=== PATIENT | male | born 1955 | race Hispanic/Latino ===

== ENCOUNTER 2016-09-17 14:19 | Day surgery (SDC) | payer SELFPAY ==
[~2016-09-17] VITALS: Ht 177.8 cm; Wt 113.4 kg
--- NOTE | 2016-09-17 08:03 | PCM.HPANE ---
Patient Data Surgeon Admitting Provider: Attending Provider:Sarkis Ortega MD Primary Care Physician:Ciarra Razo MD Other Provider:[facility] Anest[facility] Reason for Visit Iron Deficiency Anemia Ht/WT & BMI Body Mass Index Allergies Coded Allergies: No Known Allergies (Verified , 09/24/13) Past Anesthesia History Anesthesia History: Denies:: Anesthesia Reactions, Fam Anesthesia Reaction, Fam Malignant Hypertherm, Malignant Hyperthermia Diabetes History Hx Diabetes?: Yes MRSA MRSA: No Medications Blood Thinner: Aspirin Reported Medications Losartan-Expunged Drug, Do Not Renew! 25 Mg Jrkxfo29 Mg PO DAILY #30 TAB Therapeutic Substitue for all ARB class drugs 09/21/13 Rosuvastatin-Expunged Drug, Do Not Renew! (Crestor-Expunged Drug, Do Not Renew!) 20 Mg Lqhtlk81 Mg PO DAILY #15 TAB Ref 0 For Cholesterol Management. 09/21/13 Tadalafil (Cialis)5 Mg Tablet5 Mg PO PRN Ref 0 no more than every 36 hours 09/21/13 Aspirin-Expunged Drug, Do Not Renew! (Aspirin EC-Expunged Drug, Do Not Renew!) 81 Mg Teyoqc48 Mg PO DAILY DO NOT CRUSH 09/21/13 Insulin Aspart-Expunged Drug, Do Not Renew! (Novolog-Expunged Drug, Do Not Renew !)100 U/Ml Cartridge Sq Ac Prn Pre-meal 150-199 1unit 200-249 3unit 250-299 5unit 300-345 7unit grater than 349 8unit Bed time 150-199 none 200-249 2unit 250-299 3unit 300-345 5unit grater than 349 7unit 11/12/11 Insulin Glargine-Expunged Drug, Do Not Renew! (Lantus-Expunged Drug, Do Not Renew!)100 Unit/1 Ml Vial30 Unit SQ HS 11/12/11 Carvedilol-Expunged Drug, Do Not Renew! 12.5 Mg Kipmhr28.5 Mg PO BID 09/16/11 Lisinopril-Expunged Drug, Do Not Renew! 5 Mg Tablet5 Mg PO AM 09/05/11 Insulin Aspart-Expunged Drug, Do Not Renew! (Novolog-Expunged Drug, Do Not Renew !)100 U/Ml Fewubiizu75 U Sq Tidac 09/05/11 Escitalopram-Expunged Drug, Do Not Renew! (Lexapro-Expunged Drug, Do Not Renew!) 10 Mg Ltfqhu42 Mg PO AM Ref 0 06/21/09 Omeprazole-Expunged Drug, Do Not Renew! 20 Mg Tablet.dr20 Mg PO DAILY Ref 0 06/21/09 Atorvastatin-Expunged Drug, Do Not Renew! 40 Mg Wxzwov58 Mg PO BID Ref 0 06/21/09 Discontinued Reported Medications Ranitidine Hcl (Zantac)300 Mg Iaz491 Mg PO HS PRN 09/21/13 Docusate Sod-Expunged Drug, Do Not Renew! 250 Mg Shbrluw918-346 Mg PO DAILY 09/21/13 Beclomethasone-Expunged Drug, Do Not Renew! (Wiaf-84-Ramfjtja Drug, Do Not Renew !)80 Mcg Puff1 Puff INH BID #8.7 GM Ref 0 SHAKE WELL*RINSE MOUTH AFTER USE* 09/21/13 Albuterol-Expunged Drug, Do Not Renew! (ProAir HFA-Expunged Drug, Do Not Renew!) 200 Puff/8.5 Gm Hfa.aer.ad2 Puff INH Q4H PRN #8.5 GM Ref 0 For Wheezing or Shortness of Breath 09/21/13 Duloxetine-Expunged Drug, Do Not Renew! (Cymbalta-Expunged Drug, Do Not Renew!) 60 Mg Capsule.dr60 Mg PO BID 09/21/13 Nortriptyline-Expunged Drug, Do Not Renew! 10 Mg Zjpxfzt84 Mg PO HS 09/21/13 oxyCODONE-Expunged, Do Not Renew! (OxyCONTIN-Expunged, Do Not Renew!)20 Mg Tab.sr.12h20 Mg PO BID 11/12/11 Acetaminophen With Codeine (Cocet Plus Tablet)1 Each Tablet1-2 Each PO Q6 PRN 09/16/11 Buspirone-Expunged Drug, Do Not Renew! 15 Mg Puwtvg03 Mg PO BID 09/05/11 Metformin-Expunged Drug, Do Not Renew! 1,000 Mg Tablet1,000 Mg PO BID Ref 0 06/21/09 History History of ENT Problems?: Yes HEENT History: Positive for:: Sinus Problem (ALLERGIC RHINITIS) Denies:: Cataracts Dysphagia Hx of Heart Problems?: Yes Cardiovascular History: Positive for:: Cardiac Surgery (ANGIOPLASTY 2001) Congestive Heart Failure (per hx. Pt. denies) Edema (LEGS) Hypertension Denies:: Chest Pain Heart Murmur Irregular Heartbeat Pacemaker Thrombophlebitis Hx of Respiratory Problem?: No Respiratory History: Positive for:: Asthma Cough (07/12 SORE THROAT/COLD) Denies:: COPD Chest Surgery Dyspnea Hemoptysis Pneumonia Hx Neurologic Problems?: No Neurological History: Denies:: Alzheimer's Disease CVA Dementia Dizziness Headaches Parkinson's Disease Seizures Hx of GI Problems?: Yes Gastrointestinal History: Positive for:: Gastroesphageal Reflux Gastrointestinal Bleeding (from ulcer) Rectal Bleeding Denies:: Diverticulitis Heartburn Hepatitis Hiatal Hernia Hx of Problems?: No Male Hx: Positive for:: Prostate Problems (BPH) Denies:: Scrotal Mass Testicular Surgery Skin History: Denies:: History Skin Disorders? Pressure Ulcers Hx Musculoskeletal Problems?: Yes Musculoskeletal History: Positive for:: Back Injury (neck pain, DJD) Degenerative Joint (BILAT KNEES) Joint Replacement (bilateral TKA) Denies:: Musculoskeletal Trauma Hx of Psycho/Social Problems?: Yes Psycho Social History: Positive for:: Anxiety (AGORAPHOBIA W/ PANIC DISORDER) Hx Depression Denies:: Bipolar Disorder Suicide Attempt Hx Surgeries?: Yes (bi lateral total knees, heart cath,nose a) Hx Any Other Health Problems?: Yes Other History: Positive for:: Hospitalization (surgeries) Denies:: Cancer Endocrine Disease Thyroid Disease History Blood Transfusions: Positive for:: Blood Transfusions (During last admission) Denies:: Blood Transfuse Reaction Hx Diabetes: Yes Hx Alcohol Use: NoHx Substance Use: No Stop/Bang AIME Risk Assessment: Low Risk, <3 Yes Risk Assessment Category Category 1A: Patient has history of documented sleep apnea, and HAS NOT received any narcotic, sedative or anesthesia administration during this stay. Category 1B: Patient has history of documented sleep apnea, and HAS received any narcotic , sedative or anesthesia administration during this stay Category 2: Patient has SUSPECTED Obstructive Sleep Apnea, and HAS received any narcotic , sedative or anesthesia administration during this stay. Category 3: Patient has SUSPECTED Obstructive Sleep Apnea and HAS NOT received narcotic, sedative or anesthesia administration during this stay. Category 4: Outpatient in Procedural Areas with known sleep apnea or who screen positive for High Risk via the STOP/BANG questionnaire. Exam Exam General Appearance: Alert, Oriented X3, Cooperative, No Acute Distress HEENT/AIRWAY: MP 2 Lungs: Clear to Auscultation, Normal Air Movement Heart: Exam Unremarkable, Regular Rate/Rhythm, No Murmurs/Rubs/Gallops Plan Impression Patient chart reviewed, patient interviewed and anesthestic plan with risks, benefits, and alternatives discussed, and informed consent obtained. ASA Physical Status: ASA3 Severe Disease Anesthetic Plan: MAC Bene/Risks/Altern/Consents: Yes HP Complete Prior to Induction: Yes Carola Wilson MD Sep 17, 2016 08:03
[~2016-09-17 14:19] MED LIST: ACET-1955 PO; ASP81TEC PO; BUSP15 PO; CARV12.5 PO; COZ25 PO; CRES20T PO; DSS250 PO; DULO60CA42 PO; ESCI10TA PO; INSU100C8 SQ; INSU100V7 SQ; LIP40 PO; Lactated Ringer's 1,000 ML IV ONE; METF1000 PO; OMEP20TA86 PO; OXC20TCR PO; PAM10 PO; ProAirHFA INH; QVAR80 INH; RNT300T PO; TADA5TAB2 PO; ZES5 PO
[2016-09-17] MEDS ORDERED: Propofol 10,000 mCg/mL 20 mL Inj ONE (14:20)
[2016-09-17] MEDS ORDERED: fentaNYL-PF 50 mCg/mL 2 mL Inj ONE (14:20)
[2016-09-17 15:09] VITALS: BP 142/77; PULSE 87; RESP 18; O2SAT 92
--- NOTE | 2016-09-17 15:50 | PCM.ANEP1 ---
Post Anesthesia Phase 1 PACU Phase 1 Assessment Vital Signs Vital Signs Date Time Temp Pulse Resp B/P Pulse Ox O2 Delivery O2 Flow Rate FiO2 09/17/16 15:09 37.0 87 18 142/77 92 Room Air Anesthetic Administered: MAC Level of Alertness: Awake, talking ROOT's with Equal Strength: Yes Pain: No Nausea or Vomiting: No Oxygen Delivery: Nasal Cannula Lungs: Clear to Auscultation, Normal Air Movement Carola Wilson MD Sep 17, 2016 15:50
[2016-09-17] MEDS ORDERED: Lactated Ringer's 1,000 ML IV SCH (15:51)
--- NOTE | 2016-09-17 15:51 | PCM.ANEP2 ---
Post Anesthesia Evaluation ASA/CMS Post Anesthesia VS in Patient's Normal Range?: Yes Resp Stable; Airway Patent?: Yes CV Function & Hydration Stable: Yes Mental Status Recovered?: Yes Pain control Satisfactory?: Yes N/V Control Satisfactory?: Yes Carola Wilson MD Sep 17, 2016 15:50
[2016-09-17 15:55] VITALS: BP 140/74; PULSE 82; RESP 16; O2SAT 89
[2016-09-17] MEDS ORDERED: MetoCLOpramide 5 mg/mL 2 mL Inj IVPUSH PRN (15:55)
[2016-09-17] MEDS ORDERED: Ondansetron 2 mg/mL 2 mL Inj IVPUSH PRN (15:55)
[2016-09-17 16:05] VITALS: BP 121/78; PULSE 83; RESP 16; O2SAT 96
--- NOTE | 2016-09-17 16:10 | ENDO ---
[address] [address] ENDOSCOPY PROCEDURE PATIENT: COLE VAUGHAN : 1955 MR#: [id number] ADMIT: 09/17/2016 JOB ID: [id number] DATE OF SERVICE: 09/17/2016 TYPE OF OPERATION: 1. Esophagogastroduodenoscopy with biopsy. 2. Colonoscopy. PREOPERATIVE DIAGNOSIS: Iron deficiency anemia. POSTOPERATIVE DIAGNOSES: 1. Mild nonerosive gastritis. 2. Normal colonoscopy. ANESTHESIA: Monitored anesthesia care. COMPLICATIONS: None. BLOOD LOSS: Minimal. DESCRIPTION OF PROCEDURE: After risks and benefits were explained to the patient, informed consent was obtained. After anesthesia administered, the upper endoscope was then inserted in mouth and intubated into the esophagus, stomach, second portion of duodenum, and mucosa carefully examined. After procedure was done, the scope withdrawn and procedure terminated. Colonoscope was then inserted from the rectum to the cecum. Mucosa carefully examined. Prep of the patient was excellent. After procedure was done, the scope withdrawn and procedure terminated. FINDINGS: Upon inspection of the esophagus, esophagus was normal without masses, ulcers, or lesions. Z-line located 40 cm from incisors. Upon entering the stomach, there was mild nonerosive gastritis seen throughout the entirety of the stomach. Retroflexion was normal. Duodenal bulb, first and second portions were normal. Biopsies taken from the antrum and body of stomach and duodenum. Upon inspection of the anus, no masses, hemorrhoids, ulcers, or fissures that were seen. Throughout the entire examination, there were no polyps, masses, or lesions. Retroflexion normal. IMPRESSION: 1. Normal colonoscopy. 2. Mild nonerosive gastritis, status post biopsy. RECOMMENDATION: Await pathology results. Follow up in GI clinic as needed.
[2016-09-17 16:15] VITALS: BP 116/71; PULSE 95; RESP 16; O2SAT 91
[2016-09-17 16:23] VITALS: BP 138/76; PULSE 82; RESP 16; O2SAT 93
--- NOTE | 2016-09-20 15:45 | PATH ---
SURGICAL PATHOLOGY Attending Physician:Sarkis Ortega MD CASE STATUS: Signed Out PATIENT NAME: COLE VAUGHAN PID: [id number] : 1955 DATE COLLECTED:09/17/2016 00:00 SPECIMEN: 1: Duodenum, Biopsy 2: Stomach, Antrum, Biopsy 3: Gastric, Biopsy CLINICAL HISTORY: A: DUODENAL BIOPSY B: ANTRUM BIOPSY C: GASTRIC BODY BIOPSY FINAL DIAGNOSIS: 1.DUODENAL BIOPSY: DUODENAL MUCOSA WITH NO DIAGNOSTIC ABNORMALITY. Negative for active inflammation, features of sprue, dysplasia, and malignancy. 2. 3.STOMACH, ANTRUM, BODY, BIOPSIES: HELICOBACTER PYLORI GASTRITIS. Negative for intestinal metaplasia. Negative for dysplasia and malignancy. ICD10 code R10.9 B96.81 GROSS DESCRIPTION: The specimen is received in three formalin filled containers labeled with the patient's name. 1). The specimen is sublabeled "duodenal" and consists of 2 portions of tissue which aggregate to 0.3 x 0.3 x 0.2 CM. The specimen is entirely submitted in cassette 1A. 2). The specimen is sublabeled "antrum" and consists of 2 portions of tissue which aggregate to 0.3 x 0.3 x 0.2 CM. The specimen is entirely submitted in cassette 2A. 3). The specimen is sublabeled "gastric body" and consists of 2 portions of tissue which aggregate to 0.4 x 0.3 x 0.3 CM. The specimen is entirely submitted in cassette 3A. 09/18/2016 DAC MICRO DESCRIPTION: B. An immunohistochemical stain was performed to evaluate for Helicobacter organisms and is positive. A control stain shows appropriate reactivity. This test was developed and its performance characteristics determined by [facility]. It has not been cleared or approved by the [place]. Food and Drug Administration. The FDA has determined that such clearance or approval is not necessary. This test is used for clinical purposes. It should not be regarded as investigational or for research. ICD-9 CODES: CPT CODES: 1: 93379 2: 27164, 48041 3: 16590, 38785 Electronically Signed Out Amy Chandra MD [facility] Pathology [facility], [place] [address] Technical component performed at [facility], [address], [place], [address]
== END 2016-09-17 23:59 | disposition home or self-care (01) ==
LOC: END 14:19
PROVIDERS: ATTEND Internal Medicine Gastroenterology
DX: D50.9 Iron deficiency anemia, unspecified (principal); K29.70 Gastritis, unspecified, without bleeding; A04.8 Other specified bacterial intestinal infections; I10 Essential (primary) hypertension; E11.9 Type 2 diabetes mellitus without complications; Z79.4 Long term (current) use of insulin; I25.10 Atherosclerotic heart disease of native coronary artery without angina pectoris; Z95.5 Presence of coronary angioplasty implant and graft; G47.30 Sleep apnea, unspecified
CPT/HCPCS: 43239; 45378; J2250; J7120